=== PATIENT | female | born 1975 | race Caucasian/White ===

== ENCOUNTER 2019-10-23 12:12 | Emergency (ER) | payer OTHER, SELFPAY ==
[2019-10-23 12:24] VITALS: BP 137/91; PULSE 92; RESP 16; TEMP 36.8; O2SAT 100
--- NOTE | 2019-10-23 13:15 | ED.GENADULT ---
HPI - General Adult General Chief complaint: Dental/Oral Stated complaint: Swollen jaw/tooth Time Seen by Provider: 10/23/19 13:16 Source: patient and RN notes reviewed Mode of arrival: ambulatory Limitations: no limitations History of Present Illness HPI narrative: 44 [facility] complaints of pain to right lower 1st molar which started last pm with increase discomfort today. Patient states that she has noted some swelling to her right lower jaw, denies any difficulty with swallowing or shortness of breath, no Francisco Javier angina noted. Patient states history of dental problems has been taking Ibuprofen for her discomfort with mild pain decrease noted. Patient has noted caries to several teeth, states does not have dental appointment. MD complaint: dental pain and swelling to face Onset (ago): day(s) Location: face (dental pain with mild right jaw swelling) Radiation: non-radiation Severity: severe Severity scale (1-10): 8 Quality: aching Pain Consistency: constant Relieving factors: none Exacerbating factors: eating Associated symptoms: denies other symptoms Treatments prior to arrival: NSAID Related Data Home Medications Medication Instructions Recorded Confirmed fluoxetine mg 10/23/19 norethindrone (contraceptive) mg 10/23/19 Allergies Allergy/AdvReac Type Severity Reaction Status Date / Time No Known Allergies Allergy Unknown Unverified 03/24/18 10:17 Review of Systems Review of Systems: All systems reviewed & are unremarkable except as noted in HPI and below Constitutional: Constitutional: Reports as per HPI and Reports no additional constitutional complaints Eyes: Eyes: Reports as per HPI and Reports no additional eye complaints ENT: Reports system reviewed and no additional complaints, except as documented and Reports as per HPI Comments: dental caries, right lower molar, mild facial swelling Cardiovascular: Cardiovascular: Reports as per HPI and Reports no additional cardiovascular complaints Respiratory: Respiratory: Reports as per HPI and Reports no additional respiratory complaints Comments: respirations non labored Gastrointestinal: Gastrointestinal: Reports as per HPI and Reports no additional gastrointestinal complaints Genitourinary: Genitourinary: Reports no additional female genitourinary complaints and Reports as per HPI Musculoskeletal: Musculoskeletal: Reports no additional musculoskeletal complaints and Reports as per HPI Integumentary/Breasts: Skin/Breast: Reports system reviewed and no additional complaints, except as docu and Reports as per HPI Neurologic: Reports system reviewed and no additional complaints, except as documented and Reports as per HPI Psychiatric: Psychiatric: Reports no additional psychiatric complaints, Reports as per HPI, Reports anxiety and Reports depression Comments: takes medication Endocrine: Endocrine: Reports no additional endocrine complaints Hematologic/Lymphatic: Hematologic/Lymphatic: Reports no additional hematologic/lymphatic complaints Allergic/Immunologic: Allergic/Immunologic: Reports no additional allergic/immunologic complaints and Reports as per HPI Comments: mild right jaw swelling PMFSH Past Medical History Medical History (Updated 10/30/19 @ 10:21 by Tori Emery NP) Anxiety and depression Dental caries Social History Social History (Updated 10/30/19 @ 10:21 by Tori Emery NP) Smoking status: Current every day smoker Tobacco type: cigarettes Living arrangements: with family Gender identity (if verbalized by the patient): Female Comments At time of signature, agree with nursing past medical, social history. There is no relevant family history pertinent to the presenting complaint Exam Narrative: Exam Narrative: GENERAL: Well-appearing, well-nourished, and in no acute distress. HEAD: Normocephalic, atraumatic. EYES: PERRLA and EOMI. ENT: Nares clear, no rhinorrhea or ep
== END 2019-10-23 13:34 | disposition home or self-care (01) ==
PROVIDERS: Emergency Provider Registered Nurse
DX: K08.89 Other specified disorders of teeth and supporting structures (principal); K02.9 Dental caries, unspecified; F41.9 Anxiety disorder, unspecified; F32.9 Major depressive disorder, single episode, unspecified
CPT/HCPCS: 99213; G0463

== ENCOUNTER 2022-07-11 09:39 | Emergency (ER) | payer OTHER, SELFPAY ==
--- NOTE | 2022-07-11 09:46 | ED.URI ---
HPI - URI/Sore Throat General Chief Complaint: Ear Stated Complaint: Right Ear Pain Time Seen by Provider: 07/11/22 09:53 Source: patient, RN notes reviewed and old records reviewed Mode of arrival: ambulatory Limitations: no limitations History of Present Illness HPI Narrative: 47-year-old female presents to the [facility] with complaints of right ear pain after a fall a fly ?fell into my ear this morning. Patient states it feels like something moving in it. Denies any other symptoms. Denies fevers. Related Data Allergies Allergy/AdvReac Type Severity Reaction Status Date / Time No Known Allergies Allergy Unknown Verified 07/11/22 09:45 Review of Systems Review of Systems: All systems reviewed & are unremarkable except as noted in HPI and below Constitutional: Constitutional: Reports no additional constitutional complaints, Denies chills and Denies fever(s) Eyes: Eyes: Reports no additional eye complaints ENT: Reports as per HPI Cardiovascular: Cardiovascular: Reports no additional cardiovascular complaints Respiratory: Respiratory: Reports no additional respiratory complaints Gastrointestinal: Gastrointestinal: Reports no additional gastrointestinal complaints Musculoskeletal: Musculoskeletal: Reports no additional musculoskeletal complaints Integumentary/Breasts: Skin/Breast: Reports system reviewed and no additional complaints, except as docu Neurologic: Reports system reviewed and no additional complaints, except as documented Psychiatric: Psychiatric: Reports no additional psychiatric complaints Allergic/Immunologic: Allergic/Immunologic: Reports no additional allergic/immunologic complaints PMFSH Past Medical History Medical History Anxiety and depression Dental caries Social History Social History Smoking status: Current every day smoker Tobacco type: cigarettes Gender identity (if verbalized by the patient): Female Comments At the time of my signature, I reviewed and agree with the nursing past medical, surgical, social, and family history. There is no relevant family history pertinent to the patient complaint. Exam Const: General: healthy appearing, comfortable, no acute distress, well developed, alert and well nourished Nutritional Appearance: well nourished Orientation/consciousness: patient oriented x3 Limitations: no limitations HENMT: Head: normal to inspection Ears: external ears normal, TM's normal bilaterally and EAC's normal (No foreign body, small amount of cerumen noted) Face/Nose/Sinus: Normal external nose present and Normal nares present Face and sinus: normal facial exam Mouth: Yes Normal oral and palatal mucosa present, Yes lip normal and Yes moist mucous membranes Throat: posterior oropharynx normal and uvula midline Eyes: General: appearance normal, both eyes and all related structures Pupils: Equal, round and reactive pupils present Neck: Neck: normal visual inspection, full ROM, no lymphadenopathy and no meningeal signs Chest: Chest palpation & inspection: normal inspection of the chest Resp: Effort & Inspection: normal respiratory effort and no use of accessory muscles Auscultation: clear to auscultation bilaterally, no crackles, no rales, no rhonchi and no wheezes Cardio: Rate: regular rate Rhythm: regular rhythm GI: GI Palp: Yes Soft to palpation and No Tenderness to palpation present (GI) Back/Spine/Pelvis: Cervical Spine: cervical ROM normal and No Cervical spine tenderness Thoracic/Lumbar Spine: thoracic and lumbar spine normal to inspection and thoraco-lumbar ROM normal Skin: General skin exam: normal color Rashes: no rashes Wounds: no wounds Neuro: General: patient oriented x3, moves all extremities, no meningeal signs and no focal motor deficits Cranial nerves: Yes Equal, round and reactive pupils present Speech: normal speech Gait exam
[2022-07-11 09:48] VITALS: BP 120/75; PULSE 83; RESP 16; TEMP 36.9; O2SAT 100
== END 2022-07-11 10:10 | disposition home or self-care (01) ==
PROVIDERS: Emergency Provider Nurse Practitioner
DX: H92.01 Otalgia, right ear (principal); H61.21 Impacted cerumen, right ear; F17.210 Nicotine dependence, cigarettes, uncomplicated
CPT/HCPCS: 69209; 99213; G0463

== ENCOUNTER 2022-11-22 09:17 | Emergency (ER) | payer OTHER, SELFPAY ==
--- NOTE | 2022-11-22 09:35 | ED.URI ---
HPI - URI/Sore Throat General Chief Complaint: Upper Respiratory Infection Stated Complaint: sore throat Time Seen by Provider: 11/22/22 09:35 Source: patient Mode of arrival: ambulatory Limitations: no limitations History of Present Illness HPI Narrative: Roger is a 47-year-old female patient presenting to the clinic today with complaints of a nasal congestion x7 days and sore throat x1 day. She denies any fever or chills. Denies any known exposure to anyone with COVID, flu, or strep. MD elicited complaint: sore throat and nasal congestion Related Data Home Medications Medication Instructions Recorded Confirmed No Home Medications 11/22/22 11/22/22 Allergies Allergy/AdvReac Type Severity Reaction Status Date / Time No Known Allergies Allergy Unknown Verified 11/22/22 09:42 Review of Systems Review of Systems: Pertinent positives per HPI. Patient denies any fever, chills, rash, headache, visual changes, dizziness, cough, shortness of breath, chest pain, palpitations, nausea, vomiting, diarrhea, constipation, abdominal pain, or any urinary issues. PMFSH Past Medical History Medical History Anxiety and depression Dental caries Social History Social History Smoking status: Current every day smoker Tobacco type: cigarettes Living arrangements: with family Gender identity (if verbalized by the patient): Female Comments At the time of my signature, I reviewed and agree with the nursing past medical, surgical, social, and family history. There is no relevant family history pertinent to the patient complaint. Exam Narrative: General: Well-developed, well nourished, in no apparent distress Head: Normocephalic, atraumatic Eyes: Pupils equally round and reactive to light bilaterally, EOM intact, sclera and conjunctive clear, no discharge, lids normal Ears: TMs intact and clear, ear canals clear, no drainage, grossly hearing normal. Nose: Nares patent, clear nasal discharge, moderate inflammation, no sinus tenderness. Mouth: Oral pharynx without lesions or masses, good dentition, MMM. Oropharynx red with bilateral tonsillar enlargement Neck: Supple, trachea midline, no enlargement of anterior or posterior cervical nodes, no thyroid masses or goiter palpable. Cardio: Regular rate and rhythm, s1 and s2 normal, no murmur appreciated. Resp: Clear to auscultation bilaterally, no rhonchi, rales, wheezing or rubs Course Course Emergency Course: Portions of this record may have been created with voice recognition software. Level of Care: Express Care Visit Vital Signs Vital signs: Vital Signs Temperature 36.6 C 11/22/22 09:40 Pulse Rate 106 H 11/22/22 09:40 Respiratory Rate 14 11/22/22 09:40 Blood Pressure 143/83 H 11/22/22 09:40 Pulse Oximetry 100 11/22/22 09:40 Oxygen Delivery Room Air 11/22/22 09:40 Temperature 36.6 C 11/22/22 09:40 Pulse Rate 106 H 11/22/22 09:40 Respiratory Rate 14 11/22/22 09:40 Blood Pressure 143/83 H 11/22/22 09:40 Pulse Oximetry 100 11/22/22 09:40 Oxygen Delivery Room Air 11/22/22 09:40 Vital signs reviewed MDM - URI/Sore Throat MDM Narrative Medical decision making narrative: At the time of visit patient is resting comfortably on exam table. Strep screen was obtained and was negative in the clinic today. I suspect patient has URI/pharyngitis. Supportive measures were discussed with the patient she voiced understanding discharge instructions and agrees to treatment plan. Differential Diagnosis Differential diagnosis: Likely upper respiratory infection, sinusitis, viral infection, bronchitis, influenza, pharyngitis and other (COVID) Lab Data Labs: Strep Screen Presumptive Negative *(Reference Range: Negative)* Discharge Plan Discharge Clinica
[2022-11-22 09:40] VITALS: BP 143/83; PULSE 106; RESP 14; TEMP 36.6; O2SAT 100
== END 2022-11-22 10:08 | disposition home or self-care (01) ==
PROVIDERS: Emergency Provider Nurse Practitioner Family
DX: J02.9 Acute pharyngitis, unspecified (principal); F17.210 Nicotine dependence, cigarettes, uncomplicated
CPT/HCPCS: 87081; 87880; 99213; G0463

== ENCOUNTER 2023-01-10 09:28 | Emergency (ER) | payer OTHER, SELFPAY ==
--- NOTE | 2023-01-10 09:31 | ED.EXTPRO ---
HPI - Extremity Problem General Chief complaint: Extremity Problem,Nontraumatic Stated complaint: pain in left knee for past 5 days Time Seen by Provider: 01/10/23 09:30 Source: patient Mode of arrival: ambulatory Limitations: no limitations History of Present Illness HPI Narrative: Ms. Koehler is a 47-year-old female patient presenting to the clinic today with complaints of left knee pain x5 days. She reports she is having pain to the anterior knee that is radiated up into her anterior thigh and anterior tibia. Denies any known injury. States pain is worse with bending and with ambulation. Patient is currently moving and is having to walk up and down steps frequently. Related Data Home Medications Medication Instructions Recorded Confirmed No Home Medications 11/22/22 01/10/23 Allergies Allergy/AdvReac Type Severity Reaction Status Date / Time No Known Allergies Allergy Unknown Verified 01/10/23 09:48 Review of Systems Review of Systems: Pertinent positives per HPI. Patient denies any fever, chills, rash, headache, visual changes, dizziness, cough, runny nose, sore throat, shortness of breath, chest pain, palpitations, nausea, vomiting, diarrhea, constipation, abdominal pain, or any urinary issues. PMFSH Past Medical History Medical History Anxiety and depression Dental caries Social History Social History Smoking status: Current every day smoker Tobacco type: cigarettes Living arrangements: with family Gender identity (if verbalized by the patient): Female Comments At the time of my signature, I reviewed and agree with the nursing past medical, surgical, social, and family history. There is no relevant family history pertinent to the patient complaint. Exam Narrative: General: Well-developed, well nourished, in no apparent distress Head: Normocephalic, atraumatic. Cardio: Regular rate and rhythm, s1 and s2 normal, no murmur appreciated. Resp: Clear to auscultation bilaterally, no rhonchi, rales, wheezing or rubs. Musculoskeletal: No deformity, tender to palpation over the anterior knee with pain radiating into the anterior upper and lower leg, pain worse with bending the left knee to the anterior knee, grossly normal range of motion, muscle strength strong and equal, peripheral pulse strong, no edema, no cyanosis, normal gait and station Course Course Emergency Course: Portions of this record may have been created with voice recognition software. Level of Care: Express Care Visit Vital Signs Vital signs: Vital signs reviewed MDM - Extremity (Nontraumatic) MDM Narrative Medical decision making narrative: At the time of visit patient is resting comfortably on the exam table. I suspect patient has patellofemoral syndrome. Supportive measures were discussed with the patient in an Jose wrap was applied. Patient voiced understanding and agrees to treatment plan. Differential Diagnosis Differential diagnosis: Likely other (Acute internal derangement of the left knee, patellofemoral syndrome, osteoarthritis, tendinitis) Discharge Plan Discharge Clinical Impression: Acute pain of left knee Patella-femoral syndrome Qualifiers: Laterality: left Qualified Code(s): M22.2X2 - Patellofemoral disorders, left knee Patient Disposition: Home, Self-Care Condition: Stable Instructions: Antibiotic Form, Patellofemoral Pain Syndrome (ED), Knee Pain (ED) Additional Instructions: Rest, ice, elevate, and wear jose wrap as directed Take Motrin 600-800mg for pain/inflammation 3 times daily. May apply Aspercreme, blue emu, or lidocaine to the affected area No running, squatting, or sports until healed. Follow up with your PCP if symptoms persist more than 1 week. Prescriptions: No Action No Home Medications Follow-up/Referrals: [facility]YS[facility]
[2023-01-10 09:36] VITALS: BP 133/85; PULSE 94; RESP 16; TEMP 36.9; O2SAT 100
== END 2023-01-10 09:55 | disposition home or self-care (01) ==
PROVIDERS: Emergency Provider Nurse Practitioner Family
DX: M25.562 Pain in left knee (principal); M22.2X2 Patellofemoral disorders, left knee; F17.210 Nicotine dependence, cigarettes, uncomplicated
CPT/HCPCS: 99212; G0463

== ENCOUNTER 2024-05-13 11:16 | Outpatient (CLI) | payer OTHER, SELFPAY | END 2024-05-13 11:17 | disposition home or self-care (01) | PROVIDERS: Visit Provider Family Medicine | DX: M25.561 Pain in right knee (principal) | CPT/HCPCS: 73564 ==

== ENCOUNTER 2024-06-13 13:16 | Outpatient (CLI) | payer OTHER, SELFPAY ==
--- NOTE | ~2024-06-13 | MR_ITS ---
MRI right knee without contrast Ordering provider: Venkatesh Parks DO History: . M25.561 - Pain in right knee . Comparison: None. TECHNIQUE: Multiplanar multisequence MRI images were obtained. 15 mL MultiHance was injected IV. FINDINGS: QUADRICEPS, PATELLAR TENDONS AND CRUCIATE LIGAMENTS: Normal in signal and size. No tear. MENISCI: T2 bright signal is seen in the posterior horn of the medial meniscus extending to the unde rsurface suggestive of a tear. COLLATERAL LIGAMENTS: Normal. PATELLA: Normal position without tilt or subluxation. The lateral patellar retinaculum and medial pat ellofemoral ligament are intact. Partial tear of the medial retinaculum is highly suggestive. Follow- up advised. JOINT SPACE/ARTICULAR CARTILAGE: The articular cartilage of the knee shows irregularity on the femor al knee cartilage medially suggestive of osteoarthritic changes. Including the posterior femoral cond yles. Mild to moderate joint effusion. Enhancement in the synovium is noted which may indicate synovi tis. BONES: Normal marrow signal. SUPERFICIAL AND DEEP SOFT TISSUE: No popliteal cyst. . No muscle strain. Otherwise, normal. IMPRESSION: tear in the posterior horn of the medial meniscus. Possible partial tear of the medial retinaculum. Enhancement seen in the synovium which may indicate synovitis.. Clinical correlation and follow-up ad vised. Osteoarthritic changes of the medial compartment. Reviewed, dictated and finalized at location A. IMPRESSION: tear in the posterior horn of the medial meniscus. Possible partial tear of the medial retinaculum. Enhancement seen in the synovium which may indicate synovitis.. Clinical correl ation and follow-up advised. Osteoarthritic changes of the medial compartment.
== END 2024-06-13 13:17 | disposition home or self-care (01) ==
PROVIDERS: PCP Family Medicine; Visit Provider Family Medicine
DX: M25.361 Other instability, right knee (principal); S83.206A Unspecified tear of unspecified meniscus, current injury, right knee, initial encounter; X58.XXXA Exposure to other specified factors, initial encounter
CPT/HCPCS: 73723; A9577

== ENCOUNTER 2024-09-18 10:30 | Outpatient (RCR) | payer OTHER, SELFPAY ==
--- NOTE | 2024-07-10 12:12 | PTOPEVAL1 ---
Assessment and note entered by Shruthi Dominguez, PT Evaluation Information Assessment Status Evaluation Diagnosis S83.206A ICD-10 Condition Codes (PT) M25.561,Pain in left knee M25.562,Difficulty Walking R26.2,R26.9,Weakness R53.1 Subjective Information Pt reports falling on the R knee approx 2 yrs ago, and did not think much about it at that time. However, she noticed increased swelling and increased pain to affected knee last March 2023. 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 Pt elevates leg, takes Tylenol and ice to help relieve pain. Recently received a Cortisone shot last 07/03 but had to work that same day, which did not help, now it is still swollen and painful and there is a visible bruise to medial side of knee. Pt wants to be able to function without pain and improve walking. Reported Pain Level Pain Score 3: Self Report Assessment PT Clinical Summary Pt is a 49 yo female who presents to therapy with increased pain to R knee, MRI results showed a tear in the posterior horn of the medial meniscus, Possible partial tear of the medial retinaculum, Enhancement seen in the synovium which may indicate synovitis, Osteoarthritic changes of the medial compartment. Demos audible and palpable crepitus to bilat knees, significant loss of ROM to R knee with noted swelling, weakness, decreased standing tolerance, balance deficits and gait impairments impacting safety with performing ADLs and IADLs independently. She will benefit from skilled PT to address and manage pain, regain joint mobility, improve stability and strength of BLE musculature, improve standing and ambulation mechanics. Plan of Care Interventions Electrical Stimulation,Gait Training,Hot Pack/Cold Pack,Intermittent Compression,Manual Therapy, Neuro Re-education,Patient/Caregiver Education, Therapeutic Activities,Therapeutic Exercise, Ultrasound,Other Other Interventions IASTM, Taping PT Services Indicated Yes Treatment Frequency and 2x/wk x 12 visits Duration These treatments will address the objective and functional deficits as defined above. The patient will be advanced safely and appropriately in order for the patient to progress towards his/her prior level of function. Additional exercises will be introduced and as well as a comprehensive home exercise program upon discharge, if needed, ?to ensure carryover of functional gains achieved in the clinic. This treatment plan has been reviewed and agreement upon by the patient.
--- NOTE | 2024-09-15 13:29 | PTOPPROG ---
Assessment and note entered by Shruthi Dominguez, PT Progress Information Assessment Status Progress Diagnosis S83.206A ICD-10 Condition Codes (PT) Pain in right knee M25.561,Pain in left knee M25. 562,Difficulty Walking R26.2,Abnormalities of gait and mobility R26.9,Weakness R53.1 Subjective Information Pt reports that she feels like she is able to move the knee better with not much pain, both hips have been hurting on and off and recently been getting worse with the cold weather. Assessment PT Clinical Summary Pt demo good progress with skilled PT, able to tolerate standing and walking longer at this time. However, she also made significant adjustment to workload to reduce strain to R knee. Pain and swelling persist and failed to improve and return to normal with conservative treatments resulting to requiring the next level of care at this time. She will benefit from continued skilled PT to further improve RLE mobility and general strength and stability to prepare for possible surgical interventions. Plan of Care Interventions Electrical Stimulation,Gait Training,Hot Pack/Cold Pack,Intermittent Compression Pump,Manual Therapy ,Neuro Re-education,Patient/Caregiver Education, Therapeutic Activities,Therapeutic Exercise, Ultrasound,Other Other Interventions IASTM, Taping PT Services Indicated Yes Treatment Frequency and 2x/wk x 6 visits Duration These treatments will address the objective and functional deficits as defined above. The patient will be advanced safely and appropriately in order for the patient to progress towards his/her prior level of function. Additional exercises will be introduced and as well as a comprehensive home exercise program upon discharge, if needed, ?to ensure carryover of functional gains achieved in the clinic. This treatment plan has been reviewed and agreement upon by the patient.
--- NOTE | 2024-09-29 09:32 | PTOPDC ---
Assessment and note entered by Shruthi Dominguez, PT Discharge Information Assessment Status Discharge - Pt Not Present Diagnosis S83.206A ICD-10 Condition Codes (PT) Pain in right knee M25.561,Pain in left knee M25. 562,Difficulty Walking R26.2,Abnormalities of gait and mobility R26.9,Weakness R53.1 Subjective Information Pt reports that she feels like she is able to move the knee better with not much pain, both hips have been hurting on and off and recently been getting worse with the cold weather. Assessment PT Clinical Summary Pt received a total of 12 treatment sessions and showed gains in joint mobility and strength. 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 Her R knee swelling and pain continue to persist, resulting to a need for a different medical approach at this time. skilled PT discontinued. Plan of Care PT Services Indicated No
== END 2024-09-29 09:51 | disposition home or self-care (01) ==
LOC: ANHHIPT 10:30
PROVIDERS: PCP Family Medicine; Visit Provider Orthopaedic Surgery
DX: S83.206A Unspecified tear of unspecified meniscus, current injury, right knee, initial encounter (principal); M25.561 Pain in right knee; M25.562 Pain in left knee; R26.2 Difficulty in walking, not elsewhere classified; R26.9 Unspecified abnormalities of gait and mobility; R53.1 Weakness
CPT/HCPCS: 97014; 97016; 97035; 97110; 97140; 97161; 97750; G0283

== ENCOUNTER 2024-09-23 13:11 | Outpatient (CLI) | payer OTHER, SELFPAY ==
--- NOTE | ~2024-09-23 | US_ITS ---
EXAM: PELVIC ULTRASOUND HISTORY: N92.6 - Irregular menstruation, unspecified . Irregular menses with dysfunctional uterine bl eeding 9 para 8 Postmenopausal COMPARISON: None. FINDINGS: UTERUS: 12.8 x 6.0 x 7.7 cm cm. The uterus is anteverted and anteflexed. The endometrial complex is thickened and measures 23 mm. RIGHT OVARY: The right ovary is unremarkable in size measuring 2.5 x 2.2 x 2.8 cm. Dopplerable flow is identified. LEFT OVARY: The left ovary is unremarkable in size measuring 4.9 x 2.5 x 4.5 cm Dopplerable flow is identified. A single anechoic avascular focus is identified within the left ovary measuring 3.5 x 2.3 x 3.2 cm, r epresenting a simple cyst (perhaps an involuting follicle) for which follow-up is suggested in 6-12 m onths to assess growth. No free fluid is identified within the pelvis. IMPRESSION: Simple cyst within the right ovary measuring 3.5 cm in greatest dimension for which follow-up is sugmary jane garcia in 6-12 months to assess interval growth Thickening of the endometrial complex in a postmenopausal female Reviewed, dictated and finalized at location A. [employer] IMPRESSION: Simple cyst within the right ovary measuring 3.5 cm in greatest dimension [facility] is suggested in 6-12 months to assess interval growth Thickening of the endometrial complex in a postmenopausal female
[2024-09-23 14:44] LABS: Thyroid Stimulating Hormone Reflex 0.544 uIU/mL (0.465-4.68)
[2024-09-24 08:04] LABS: Prolactin 3.6 ng/mL
== END 2024-09-23 13:12 | disposition home or self-care (01) ==
LOC: ANHIMG 13:12
PROVIDERS: PCP Family Medicine; Visit Provider Family Medicine
DX: N92.6 Irregular menstruation, unspecified (principal); N83.201 Unspecified ovarian cyst, right side
CPT/HCPCS: 36415; 76830; 82672; 84146; 84443

== ENCOUNTER 2024-11-18 09:17 | Outpatient (CLI) | payer MEDICAID, SELFPAY ==
--- NOTE | ~2024-11-18 | MR_ITS ---
MRI of the right shoulder Technique: Axial proton-density fat-sat images, coronal proton density fat-sat and T2 fat-sat images, and sagittal T1-weighted and T2 fat-sat images were acquired. Clinical History: Pain Findings: There is moderate to advanced AC joint degenerative change with subacromial spur and distal clavicular bony productive change. Coracoclavicular, coracoacromial, and coracohumeral ligament are intact. There is 0.8 x 0.9 cm full-thickness tear at the distal supraspinatus tendon insertion region. There is background moderate to severe supraspinatus tendinosis. Infraspinatus tendon is intact, without pa rtial or full-thickness tear. Subscapularis tendon demonstrates mild tendinosis with possible partial thickness bursal surface tearing of the distal most fibers. Tendon of long head of the biceps is int act, with intra-articular tendinosis. Probable subtle superior labral tear without definite anterior or posterior extension. Inferior glenohumeral ligament is intact. No significant degenerative change of the glenohumeral join t seen. There is minimal effusion. There is fluid passing through the rotator cuff defect into the dean bacromial/subdeltoid bursa. No muscle atrophy or edema. Impression: 0.8 x 0.9 cm full-thickness tear at the distal supraspinatus tendon, with background moderate to syl re supraspinatus tendinosis. Questionable partial thickness bursal surface tearing of the distal most fibers of the subscapularis tendon. Questionable superior labral tear without anterior or posterior extension. Moderate to advanced AC joint degenerative change. Reviewed, dictated and finalized at [facility]. Impression: 0.8 x 0.9 cm full-thickness tear at the distal supraspinatus tendon, with backg round moderate to severe supraspinatus tendinosis. Questionable partial thickness bursal surface tearing of the distal most fibers of the subscapularis tendon. Questionable superior labral tear without anterior or posterior extension. Moderate to advanced AC joint degenerative change.
--- OUTSIDE RECORDS SUMMARY | 2024-11-18 10:02 | XMS_ITS | Clinical Summary ---
Author Organization [facility] [employer] Address [address] [facility] [place] [address] Care Team Providers Care Order Control Clerk Blood Bank Name Role Phone Natacha Stern Yudelka SOLDERER ELECTRONIC-BODY CARE MANAGER Primary Care Provider Source Comments [facility] [employer],non-owned Affiliates and Associated Physician Practices is amultiple site organization consisting of ambulatory clinics and hospital sitesin [place], [place], [place] and [place]. This disclosure is being madepursuant to the Care Everywhere program and may not contain all information available regarding this patient. Last updated 18.[facility] [employer] Allergies No known active allergies Medications * Be aware that medications may not be up to date on this document. Alwaysverify current medications with the patient. Medication Sig Dispensed Refills Start Date End Date Status FLUoxetine (PROZAC) 20 MG capsule 04/27/2019 Active Active Problems Problem Noted Date Diagnosed Date Maternal age 40 at delivery 03/30/2015 Encounter for routine screen ing for malformation using ultrasonics 03/30/2015 Social History Tobacco Use Types Packs/Day Years Used Date Smoking Tobacco: Every Day Smokeless Tobacco: Never Sex and Gender Information Value Date Recorded Sex Assigned at Not on file Gender Identity Not on file Sexual Orientation Not on file Last Filed Vital Signs Vital Sign Reading Time Taken Comments Blood Pressure 120/82 08/05/2019 10:08 AM TECHNOLOGY ANALYST Pulse 94 08/05/2019 10:08 AM TECHNOLOGY ANALYST Temperature 36.9 C (98.5 F) 08/05/2019 10:08 AM TECHNOLOGY ANALYST Respiratory Rate - - Oxygen Saturation 96% 08/05/2019 10:08 AM TECHNOLOGY ANALYST Inhaled Oxygen Concentration - - Weight 80.7 kg (178 lb) 08/05/2019 10:08 AM TECHNOLOGY ANALYST Height 157.5 cm (5' 2 ) 08/05/2019 10:08 AM TECHNOLOGY ANALYST Body Mass Index 32.56 08/05/2019 10:08 AM TECHNOLOGY ANALYST Plan of Treatment Health Maintenance Due Date Last Done Comments COLOGUARD (AGES 45-75) - COL ON CA SCREENING 1976 COLON MONITORING 1976 COLONOSCOPY - COLON CA SCREENING 1976 CT COLONOGRAPHY - COLON CA SCREENING 1976 Colorectal Cancer Screening 1976 FIT - COLON CA SCREENING 1976 FLEX SIG - COLON CA SCREENING 1976 LIPID TESTING 1976 MAMMOGRAM 1976 PAP SMEAR 1976 HIV SCREENING 1991 HEPATITIS C SCREENING 06/21/1994 DTAP/TDAP/TD VACCINES (1 - Tdap) 1995 HEPATITIS B VACCINE (1 of 3 - 19+ 3-dose series) 1995 PNEUMOCOCCAL VACCINE (1 of 2 - PCV) 1995 SCREENING FOR DIABETES 08/05/2022 08/05/2019 COVID-19 VACCINE (1 - 2023-2 5 season) 2024 INFLUENZA VACCINE (#1) 2024 DEPRESSION SCREENING 09/03/2024 ZOSTER VACCINE (1 of 2) 2026 HIB VACCINE Aged Out No longer eligi ble based on patient's age to complete this topic HPV VACCINE Aged Out No longer eligi ble based on patient's age to complete this topic MENINGOCOCCAL (Group B) VACC INE SHARED DECISION-MAKING Aged Out No longer eligibl e based on patient's age to complete this topic MENINGOCOCCAL GROUPS A/C/Y/W VACCINE Aged Out No longer eligible b ased on patient's age to complete this topic Procedures Procedure Name Priority Date/Time Associated Diagnosis Comments COMPREHENSIVE METABOLIC PANEL Routine 08/05/2019 11:49 AM TECHNOLOGY ANALYST Low TSH level from Last 3 Months or Most Recently Relevant to Health Maintenance Results * (ABNORMAL) COMPREHENSIVE METABOLIC PANEL (08/05/2019 11:49 AM TECHNOLOGY ANALYST) BUN 11 7 - 26 mg/dL 08/05/2019 1:22 PM TECHNOLOGY ANALYST [facility] Creatinine 0.5(L) 0.6 - 1.2 mg/dL 08/05/2019 1:22 PM [facility] Sodium 141 136 - 145 mmol/L 08/05/2019 1:22 PM [facility] Potassium 3.6 3.5 - 4.5 mmol/L 08/05/2019 1:22 PM [facility] Chloride 108(H) 98 - 107 mmol/L 08/05/2019 1:22 PM [facility] CO2 24 22 - 29 mmol/L 08/05/2019 1:22 PM [facility] Glucose 87 70 - 115 mg/dL 08/05/2019 1:22 PM [facility] Calcium 9.2 8.4 - 10.2 mg/dL 08/05/2019 1:22 PM [facility] Protein Total 7.6 6.0 - 8.3 g/dL 08/05/2019 1:22 PM [facility] Albumin 4.2 3.4 - 5.0 g/dL 08/05/2019 1:22 PM [facility] Bilirubin Total 0.8 0.2 - 1.2 mg/dL 08/05/2019 1:22 PM [facility] Alkaline Phosphatase 69 40 - 150 Units/L 08/05/2019 1:22 PM [facility] ALT 11 0 - 55 Units/L 08/05/2019 1:22 PM [facility] AST 15 5 - 34 Units/L 08/05/2019 1:22 PM [facility] Anion Gap 13 8 - 18 08/05/2019 1:22 PM [facility] BUN/Creatinine Ratio 22 7 - 23 08/05/2019 1:22 PM [facility] Osmolality Calculated 291 270 - 300 mOsm/kg 08/05/2019 1:22 PM [facility] Albumin/Globulin Ratio 1.2 1.1 - 2.3 08/05/2019 1:22 PM [facility] eGFR >60 >60 mL/min/1.7 3 m2 08/05/2019 1:22 PM [facility] Blood BLOOD SPECIMEN / Unknown Lab Venipuncture / Unknown 08/05/2019 11:49 AM TECHNOLOGY ANALYST 08/05/2019 12:39 PM [facility] Manpreet Ortiz MD LAB - CHEMISTRY [facility] [address] [phone] from Last 3 Months or Most Recently Relevant to Health Maintenance Care Teams Order Control Clerk Blood Bank Relationship Specialty Start Date End Date Natacha Stern, SOLDERER ELECTRONIC-BODY CARE MANAGER [address] [place] [address] PCP - General 08/05/19
--- OUTSIDE RECORDS SUMMARY | 2024-11-18 10:02 | XMS_ITS | Clinical Summary ---
Author Organization [facility] Address [address] [place] [id number] Care Team Providers Care Iron Worker Name Role Phone None, Provider MD Primary Care Provider Unavaila ble Allergies No known active allergies Medications No known medications Encounters Date Type Department Care Team Description 09/12/2024 11:25 AM CLINICAL LABORATORY AIDE - 09/12/2024 1:18 PM CLINICAL LABORATORY AIDE Emergency [facility] Emergency Services [address] [place] [address] Benjamin Parra DO Shoulder Injury Discharge Disposition: Home or Self Care (Routine Discharge) 09/12/2024 Travel from Last 3 Months Social History Tobacco Use Types Packs/Day Years Used Date Smoking Tobacco: Never Assessed Comments Unknown Sex and Gender Information Value Date Recorded Sex Assigned at Not on file Legal Sex Female 11:15 AM CLINICAL LABORATORY AIDE Gender Identity Not on file Sexual Orientation Not on file Last Filed Vital Signs Vital Sign Reading Time Taken Comments Blood Pressure 131/52 09/12/2024 11:40 AM CLINICAL LABORATORY AIDE Pulse 100 09/12/2024 11:40 AM CLINICAL LABORATORY AIDE Temperature 36 C (96.8 F) 09/12/2024 11:40 AM CLINICAL LABORATORY AIDE Respiratory Rate 18 09/12/2024 11:40 AM CLINICAL LABORATORY AIDE Oxygen Saturation 97% 09/12/2024 11:40 AM CLINICAL LABORATORY AIDE Inhaled Oxygen Concentration - - Weight 79.4 kg (175 lb) 09/12/2024 11:40 AM CLINICAL LABORATORY AIDE Height 160 cm (5' 3 ) 09/12/2024 11:40 AM CLINICAL LABORATORY AIDE Body Mass Index 31 09/12/2024 11:40 AM CLINICAL LABORATORY AIDE Plan of Treatment Health Maintenance Due Date Last Done Comments Cervical Cancer Screening Pa p Smear (Age 30 to 64) Every 3 Years 1976 Colorectal Cancer Screening Colonoscopy (10 Years) 1976 Annual Physical 1979 Hepatitis C 1994 DTaP, Tdap and Td Vaccines ( 1 - Tdap) 1995 Hepatitis B Vaccines (1 of 3 - 19+ 3-dose series) 1995 Cervical Cancer Screening Pa p with HPV Testing (Age 30 to 64) Every 5 Years 2006 Cervical Cancer Screening wi th HPV 2006 Mammogram Screening 2016 COVID-19 Vaccine (2 - 2023-2 5 season) 2024 01/29/2021 Influenza Adult (#1) 2024 09/24/2019, 07/24/2018 Meningococcal B Vaccine Aged Out No l onger eligible based on patient's age to complete this topic Meningococcal Vaccine Aged Out No ivory ewelina eligible based on patient's age to complete this topic Pneumococcal Vaccine: Pediatrics (0 to 5 Years) and At-Risk Patients (6 to 64 Years) Aged Out No longer eligible b ased on patient's age to complete this topic RSV Immunizations Under 20 Months Aged Out No longer eligible b ased on patient's age to complete this topic Procedures Procedure Name Priority Date/Time Associated Diagnosis Comments XR SHOULDER RT 3V STAT 09/12/2024 11: 51 AM CLINICAL LABORATORY AIDE from Last 3 Months Results * XR SHOULDER RT 3V (09/12/2024 11:51 AM CLINICAL LABORATORY AIDE) Anatomical Region Laterality Modality Shoulder Computed Tomogra phy 09/12/2024 11:5 2 AM CLINICAL LABORATORY AIDE Impressions 09/12/2024 11:52 AM CLINICAL LABORATORY AIDE IMPRESSION: No acute findings Ordered By: BENJAMIN PARRA Interpreted By: Aureliano Vazquez MD, 09/12/2024 11:52 AM Narrative 09/12/2024 11:52 AM CLINICAL LABORATORY AIDE [address] [place] [address] 3 VIEWS OF THE RIGHT SHOULDER CLINICAL HISTORY: Pain COMPARISON: None 3 views of the right shoulder demonstrate the bony elements to be intact. There is no evidence of fracture or dislocation. The surrounding soft tissues appear normal. Procedure Note Aureliano Vazquez MD - 09/12/2024 [facility] [address] [place] [address] 3 VIEWS OF THE RIGHT SHOULDER CLINICAL HISTORY: Pain COMPARISON: None 3 views of the right shoulder demonstrate the bony elements to be intact.There is no evidence of fracture or dislocation. The surrounding softtissues appear normal. IMPRESSION: No acute findings Ordered By: BENJAMIN PARRA Interpreted By: Aureliano Vazquez MD, 09/12/2024 11:52 AM us Benjamin Parra DO GENERAL IMAGING Final Res ult from Last 3 Months Insurance [employer] Care Teams Iron Worker Relationship Specialty Start Date End Date None, Provider, PCP - General UNKNOWN PHYSICIAN SPECIALTY 09/12/24
== END 2024-11-18 09:18 | disposition home or self-care (01) ==
PROVIDERS: PCP Family Medicine; Visit Provider Family Medicine
DX: M19.011 Primary osteoarthritis, right shoulder (principal)
CPT/HCPCS: 73221

== ENCOUNTER 2025-01-19 09:15 | Outpatient (RCR) | payer MEDICAID, OTHER, SELFPAY ==
--- NOTE | 2024-11-20 14:16 | OPREHPOC ---
Outpatient Therapy Plan of Care This is a Multidisciplinary Plan of Care that may contain components documented by all disciplines (PT, OT, and ST.) PT Problem 1 PT Problem #1 Knowledge Deficit PT Goal 1 Goal / Goal Update Pt will demo good understanding of diagnosis and prognosis. Pt will perform HEPs to improve shoulder stability and ROM indep. Target Visit 10 PT Problem 2 PT Problem #2 Pain PT Goal 1 Goal / Goal Update Pt will report pain intensity of at least 1-2/10 at rest, 5/10 at worst or when performing functional tasks of reaching and pulling. Target Visit 12 PT Problem 3 PT Problem #3 Impaired Range of Motion PT Goal 1 Goal / Goal Update Pt will demo an increase of 10deg or more of active shoulder ROM to all tested planes Target Visit 12 PT Problem 4 PT Problem #4 Impaired Strength PT Goal 1 Goal / Goal Update Pt will demo 5/5 strength to elbow, wrist and hand muscles and improved strength of shoulder upto at least 3/5 or more. Target Visit 10 Progress Met PT Problem 5 PT Problem #5 Impaired Functional Mobility PT Goal 1 Goal / Goal Update Pt will increase score of Quick DASH to 20 or less in order to improve safety in independent performance of functional tasks and IADLs. Target Visit 12
--- NOTE | 2024-11-20 14:17 | PTOPEVAL1 ---
Assessment and note entered by Shruthi Dominguez, PT Evaluation Information Assessment Status Evaluation Diagnosis M25.511 ICD-10 Condition Codes (PT) Pain in right shoulder M25.511,Weakness R53.1 Onset early September of 2024 Subjective Information R shoulder pain which started when she fell on ice and landed on her R side, it had swollen and she was not able to move it without pain. The stiffness and pain persisted up to now, 2 months after. States she received Cortisone shot on R shoulder 2 weeks after the injury but did not get any relief. Reaching back of head to tie hair is greatly limited, unable to grab and carry grocery bags with R arm, increased difficulty with performing ADLs (cooking and cleaning). Currently job less and sleep deprived due to pain and stress. Shoulder pain also wakes her up at night. Alternating Tylenol and Ibuprofen for pain relief but only minimal effect. Reported Pain Level Pain Score 3: Self Report Additional Pain Score Comments 3/10 pain level at rest Assessment PT Clinical Summary Pt presents to therapy with c/o increased pain to R shoulder. MRI on 11/18 showed full thickness tear at distal supraspinatus tendon with mod-severe supraspinatus tendinosis, possible labral tear, QUICK DASH score is 48 indicating extreme disability. Currently patient reports significant pain, severe limitation in ROM and strength impacting performance of ADLs and IADLs. She may benefit from skilled PT intervention to manage pain, improve knowledge on guided exercises, improve ROM and safety with performing functional mobility. Plan of Care Interventions Check Out for Orthotic/Prosthetic,Electrical Stimulation,Hot Pack/Cold Pack,Manual Therapy, Neuro Re-education,Patient/Caregiver Education, Therapeutic Activities,Therapeutic Exercise, Ultrasound,Other Other Interventions Benji, MARIA FERNANDA PT Services Indicated Yes Treatment Frequency and 1-2x/wk x 12 visits Duration These treatments will address the objective and functional deficits as defined above. The patient will be advanced safely and appropriately in order for the patient to progress towards his/her prior level of function. Additional exercises will be introduced and as well as a comprehensive home exercise program upon discharge, if needed, ?to ensure carryover of functional gains achieved in the clinic. This treatment plan has been reviewed and agreement upon by the patient.
--- NOTE | 2024-12-29 15:44 | PTOPPROG ---
Assessment and note entered by Shruthi Dominguez, PT Progress Information Assessment Status Progress Diagnosis M25.511 ICD-10 Condition Codes (PT) Pain in right shoulder M25.511,Weakness R53.1 Onset early September of 2024 Subjective Information Reports R shoulder pain continues to cause difficulty with movement like tying hair or opening a jar; 50% better than when she first started. Assessment PT Clinical Summary Pt received a total of 6 treatment sessions and demos gains in passive ROM and strength, however she demos limited improvement in pain levels and active ROM against gravity at this time. She has a f/u appointment with Ortho and agreeable to discussion about possible surgery. She wants to hold therapy treatment sessions until after update from Ortho at this time. Plan of Care Interventions Check Out for Orthotic/Prosthetic,Electrical Stimulation,Hot Pack/Cold Pack,Manual Therapy, Neuro Re-education,Patient/Caregiver Education, Therapeutic Activities,Therapeutic Exercise, Ultrasound,Other Other Interventions IASTM, Taping PT Services Indicated Yes Treatment Frequency and 2x/wk x 10 visits Duration These treatments will address the objective and functional deficits as defined above. The patient will be advanced safely and appropriately in order for the patient to progress towards his/her prior level of function. Additional exercises will be introduced and as well as a comprehensive home exercise program upon discharge, if needed, ?to ensure carryover of functional gains achieved in the clinic. This treatment plan has been reviewed and agreement upon by the patient.
--- NOTE | 2024-12-29 15:45 | OPREHPOC ---
Outpatient Therapy Plan of Care This is a Multidisciplinary Plan of Care that may contain components documented by all disciplines (PT, OT, and ST.) PT Problem 1 PT Problem #1 Knowledge Deficit PT Goal 1 Goal / Goal Update 1. Pt will demo good understanding of diagnosis and prognosis. 2. Pt will perform HEPs to improve shoulder stability and ROM indep. Target Visit 10 Progress Partially Met PT Goal 2 Goal / Goal Update 1. goal met 2. pt reports limited compliance with HEPs due to forgetting to do them PT Problem 2 PT Problem #2 Pain PT Goal 1 Goal / Goal Update Pt will report pain intensity of at least 1-2/10 at rest, 5/10 at worst or when performing functional tasks of reaching and pulling. Target Visit 12 Progress Partially Met PT Goal 2 Goal / Goal Update update 12/25/2024: pt continue to report highest pain levels of 6-7/10 PT Problem 3 PT Problem #3 Impaired Range of Motion PT Goal 1 Goal / Goal Update Pt will demo an increase of 10deg or more of active shoulder ROM to all tested planes Target Visit 12 Progress Partially Met PT Goal 2 Goal / Goal Update update 12/25/2024: limited progress towards shoulder rotation PT Problem 4 PT Problem #4 Impaired Strength PT Goal 1 Goal / Goal Update Pt will demo 5/5 strength to elbow, wrist and hand muscles and improved strength of shoulder upto at least 3/5 or more. Target Visit 10 Progress Partially Met PT Goal 2 Goal / Goal Update update 12/25/2024: R shoulder MMT continue to be 3- /5 due to unable to actively reach full ROM against gravity. PT Problem 5 PT Problem #5 Impaired Functional Mobility PT Goal 1 Goal / Goal Update Pt will increase score of Quick DASH to 20 or less in order to improve safety in independent performance of functional tasks and IADLs. Target Visit 12 Progress Not Met PT Goal 2 Goal / Goal Update update 12/25/2024: Quick DASH score of 33%
--- NOTE | 2025-02-02 15:51 | PTOPDC ---
Assessment and note entered by Shruthi Dominguez, PT Discharge Information Assessment Status Discharge Diagnosis M25.511 ICD-10 Condition Codes (PT) Pain in right shoulder M25.511,Weakness R53.1 Onset early September of 2024 Subjective Information Reports there are some days she is able to tie her hair without increased difficulty, Laying on the R side continue to be difficult at this time. R side of bra strap feels like burning sensation. Assessment PT Clinical Summary Pt has participated in therapy for R shoulder pain , demos some progress and gains in mobility, however strength and ability to perform functional tasks continue to be limited due to increased pain. Plan of Care PT Services Indicated No
== END 2025-02-02 16:17 | disposition home or self-care (01) ==
LOC: ANHHIPT 09:15
PROVIDERS: PCP Family Medicine; Visit Provider Family Medicine
DX: M25.511 Pain in right shoulder (principal)
CPT/HCPCS: 97014; 97035; 97110; 97112; 97140; 97161; 97750; G0283

== ENCOUNTER 2025-02-18 00:54 | Day surgery (SDC) | payer OTHER, SELFPAY ==
[2025-02-04 15:44] VITALS: BMI 32.0
--- NOTE | 2025-02-04 15:54 | PC.NURSE ---
Addendum entered by Jayden Fontaine RN 02/16/25 11:29: Patient says no changes since preop interview. Told patient to arrive at 0700 on 02-18-2025 for surgery at 0900. All other instruction the same. Original Note: Report to the Outpatient Waiting Room, entrance under the green pavilion located off [facility], at time __0800am on date __02/11/25 . Planned Procedure Time: 1000am .? Time changes happen often and if your time is changed the preop area will call you the afternoon before. - You and your visitor will be asked to self-screen and do not enter if you have any COVID symptoms. Please call surgeon if you need to reschedule. - A mask is optional within the hospital at this time. Patients may have clear liquids (water, carbonated beverages, clear teas, apple juice) until 3 hours prior to surgery with a maximum of 20 ounces. - No food from midnight until time of surgery and no smoking, or chewing tobacco (or any form of nicotine). No chewing gum, candy or mints. (0700am) Take only the following medications with a SIP of water on the morning of surgery: ___Tylenol if needed DO NOT STOP ANY OF YOUR OTHER PRESCRIPTION MEDICATIONS PRIOR TO SURGERY EXCEPT THE FOLLOWING Hold all vitamins and supplements for 3 days per anesthesiologist. Medications to discontinue per physician Motrin/NSAID/ADVIL for [address] Yagn Date to take last dose___02/06/24 Please no make-up, nail citizen of [place], hairspray, perfume, deodorant, or body powder the day of surgery.? No jewelry (including any body piercings) or valuables the day of surgery, leave them at home.? Please take a shower or bath the night before, or the morning of, surgery with an antibacterial soap.? Wear comfortable, loose fitting clothing.? - Jewelry must be removed prior to entering the operating room.? Rings and piercings that are not removed may be cut off. - The hospital will not accept responsibility for valuables.? - Please leave all valuables, including medications, at home the day of surgery. If you are going home after surgery, a licensed ems driver must drive you home.? - NO public transportation without another adult if you receive anesthesia. - We recommend that an adult stay with you for 24 hours following discharge. - We also recommend that you do not drive, make important decision, drink alcoholic beverages, or take any drugs that were not prescribed by your health care provider for at least 24 hours after your discharge time. Follow any additional instructions given to you from your surgeon. Telephone instructions given to ___Patient and asked if any additional questions and then verbalized understanding. Patient advised to call surgeon office or pre surgery nurse liaison [phone] if any additional questions.
--- NOTE | 2025-02-05 07:14 | PM.IMHP ---
H&P: HPI History of Present Illness Date/Time: 02/05/25 07:14 Chief Complaint: Patient has shoulder pain right. She has a rotator cuff tear. At this point conservative treatment is not working for. She would like to consider surgical interventiom. Review of Systems Musculoskeletal: Musculoskeletal: Reports myalgias, Reports arthralgias, Reports joint swelling and Reports stiffness PMFSH Past Medical History Medical History Tear of right supraspinatus tendon Thickened endometrium Dental caries Anxiety and depression Surgical History Surgical History History of 2012,2015,2018 Family History Family History Father Cancer Mother Hypertension Social History Social History Smoking packs per day: 0.5 Smoking cigarettes per day: 10.0 Years smoked: 15 Smoking pack-years: 7.50 Smoking status: Current every day smoker Tobacco type: cigarettes Smoking end date: 09/03/05 Alcohol intake: current Alcohol use details: 1 per month Substance use: never Do You Feel Safe in your Home?: Yes Lack of Transportation: No Lack of Food: Never True Current Housing: I Have Housing Concerned About Future Housing: No Difficulty Paying Gas/Electric Bills: No Difficulty Paying for Meds: No Currently Unemployed: No Education: High School Diploma/GED Difficulty w/ Childcare or Family Care: No Living arrangements: with family Gender identity (if verbalized by the patient): Female Spiritual care concerns: No Meds Home Medications and Allergies Home Medications ?Medication ?Instructions ?Recorded ?Confirmed ?Type meclizine 25 mg tablet 25 mg PO BID PRN dizziness #60 tabs 01/30/25 02/04/25 Rx acetaminophen 325 mg tablet (Pain 325 mg PO ONCE PRN pain 02/04/25 02/04/25 History Reliever (acetaminophen)) Allergies Allergy/AdvReac Type Severity Reaction Status Date / Time No Known Allergies Allergy Unknown Verified 02/04/25 15:42 Exam Narrative: Patient has pain with activity of her right shoulder. She is weak in abduction external rotation is give-way. Neurologically she is intact. She has pain with activity. She has a difficult time raising arm arm above the horizontal. Radiology Reports: Comments: Magnetic Resonance Report Signed Patient: Roger Koehler MRI of the right shoulder Technique: Axial proton-density fat-sat images, coronal proton density fat-sat and T2 fat-sat images, and sagittal T1-weighted and T2 fat-sat images were acquired. Clinical History: Pain Findings: There is moderate to advanced AC joint degenerative change with subacromial spur and distal clavicular bony productive change. Coracoclavicular, coracoacromial, and coracohumeral ligament are intact. There is 0.8 x 0.9 cm full-thickness tear at the distal supraspinatus tendon insertion region. There is background moderate to severe supraspinatus tendinosis. Infraspinatus tendon is intact, without partial or full-thickness tear. Subscapularis tendon demonstrates mild tendinosis with possible partial thickness bursal surface tearing of the distal most fibers. Tendon of long head of the biceps is intact, with intra-articular tendinosis. Probable subtle superior labral tear without definite anterior or posterior extension. Inferior glenohumeral ligament is intact. No significant degenerative change of the glenohumeral joint seen. There is minimal effusion. There is fluid passing through the rotator cuff defect into the subacromial/subdeltoid bursa. No muscle atrophy or edema. Impression: 0.8 x 0.9 cm full-thickness tear at the distal supraspinatus tendon, with background moderate to severe supraspinatus tendinosis. Questionable partial thickness bursal surface tearing of the distal most fibers of the subscapularis tendon. Questionable superior labral tear without anterior or posterior extension. Moderate to advanced AC joint degenerative change. Reviewed, dictated and finalized at location . Knee X-Ray 05/13/24 Knee MRI 06/13/24 Shoulder X-Ray 12/02/24 Shoulder MRI 11/18/24 Orthopedics Result Report 12/02/24 Assessment and Plan Assessment and plan (1) Tear of right supraspinatus tendon: Code(s): M75.101 - Unspecified rotator cuff tear or rupture of right shoulder, not specified as traumatic Status: Acute Assessment and Plan: Patient has a shoulder pain right. Her MRI demonstrates a rotator cuff tear. She also has acromioclavicular degeneration and pain with manipulation. She has failed conservative treatment like to proceed with surgical intervention I have discussed risks, benefits, limitations condyle, and alternatives with the patient in detail. Will proceed with rotator cuff repair distal clavicle excision arthroscopy of the shoulder. Patient understands and agrees. (2) Acromioclavicular arthrosis: Code(s): M19.019 - Primary osteoarthritis, unspecified shoulder Status: Acute
--- NOTE | 2025-02-12 09:14 | PM.IMHP ---
H&P: HPI History of Present Illness Date/Time: 02/12/25 09:14 Chief Complaint: Patient is shoulder pain right. Pain is localized to the right shoulder and she has pain and weakness. She has undergone therapy injections medicine and time unfortunately she continues to be symptomatic. She would like to consider surgical repair and of the rotator cuff and distal clavicle excision. Review of Systems Musculoskeletal: Musculoskeletal: Reports arthralgias, Reports joint swelling and Reports stiffness PMFSH Past Medical History Medical History Tear of right supraspinatus tendon Thickened endometrium Dental caries Anxiety and depression Surgical History Surgical History History of 2012,2015,2018 Family History Family History Father Cancer Mother Hypertension Social History Social History Smoking packs per day: 0.5 Smoking cigarettes per day: 10.0 Years smoked: 15 Smoking pack-years: 7.50 Smoking status: Current every day smoker Tobacco type: cigarettes Smoking end date: 09/03/05 Alcohol intake: current Alcohol use details: 1 per month Substance use: never Do You Feel Safe in your Home?: Yes Lack of Transportation: No Lack of Food: Never True Current Housing: I Have Housing Concerned About Future Housing: No Difficulty Paying Gas/Electric Bills: No Difficulty Paying for Meds: No Currently Unemployed: No Education: High School Diploma/GED Difficulty w/ Childcare or Family Care: No Living arrangements: with family Gender identity (if verbalized by the patient): Female Spiritual care concerns: No Meds Home Medications and Allergies Home Medications ?Medication ?Instructions ?Recorded ?Confirmed ?Type meclizine 25 mg tablet 25 mg PO BID PRN dizziness #60 tabs 01/30/25 02/08/25 Rx acetaminophen 325 mg tablet (Pain 325 mg PO ONCE PRN pain 02/04/25 02/08/25 History Reliever (acetaminophen)) Allergies Allergy/AdvReac Type Severity Reaction Status Date / Time No Known Allergies Allergy Unknown Verified 02/10/25 15:04 Exam Narrative: Patient has pain with any manipulation of her shoulder. She is weak in abduction external rotation. She has full painless neck motion. Neurologically she is intact. Eyes: General: appearance normal, both eyes and all related structures Neck: Neck: supple Resp: Effort & Inspection: normal respiratory effort Cardio: Rate: regular rate Rhythm: regular rhythm Radiology Reports: Comments: Magnetic Resonance Report Signed Patient: Roger Koehler MRI of the right shoulder Technique: Axial proton-density fat-sat images, coronal proton density fat-sat and T2 fat-sat images, and sagittal T1-weighted and T2 fat-sat images were acquired. Clinical History: Pain Findings: There is moderate to advanced AC joint degenerative change with subacromial spur and distal clavicular bony productive change. Coracoclavicular, coracoacromial, and coracohumeral ligament are intact. There is 0.8 x 0.9 cm full-thickness tear at the distal supraspinatus tendon insertion region. There is background moderate to severe supraspinatus tendinosis. Infraspinatus tendon is intact, without partial or full-thickness tear. Subscapularis tendon demonstrates mild tendinosis with possible partial thickness bursal surface tearing of the distal most fibers. Tendon of long head of the biceps is intact, with intra-articular tendinosis. Probable subtle superior labral tear without definite anterior or posterior extension. Inferior glenohumeral ligament is intact. No significant degenerative change of the glenohumeral joint seen. There is minimal effusion. There is fluid passing through the rotator cuff defect into the subacromial/subdeltoid bursa. No muscle atrophy or edema. Impression: 0.8 x 0.9 cm full-thickness tear at the distal supraspinatus tendon, with background moderate to severe supraspinatus tendinosis. Questionable partial thickness bursal surface tearing of the distal most fibers of the subscapularis tendon. Questionable superior labral tear without anterior or posterior extension. Moderate to advanced AC joint degenerative change. Reviewed, dictated and finalized at [facility]. Knee X-Ray 05/13/24 Knee MRI 06/13/24 Shoulder X-Ray 12/02/24 Shoulder MRI 11/18/24 Orthopedics Result Report 12/02/24 Assessment and Plan Assessment and plan (1) Tear of right supraspinatus tendon: Code(s): M75.101 - Unspecified rotator cuff tear or rupture of right shoulder, not specified as traumatic Status: Acute Assessment and Plan: Patient has rotator cuff tear right. She has failed conservative treatment like to consider surgical repair. She also has arthritis of the acromioclavicular joint with spurring and pain. I discussed treatment options with her in detail risks benefits, limitations and alternatives. She understands and agrees and would like to proceed. She is well aware the fact that she has a large tear and sometimes the tears or non repairable. Will proceed per her request. (2) Acromioclavicular arthrosis: Code(s): M19.019 - Primary osteoarthritis, unspecified shoulder Status: Acute
--- NOTE | 2025-02-17 14:28 | P.PNAN_ITS ---
Anes - Initial Pre Proc Eval Procedure: Operation Date: 02/18/25 08:00 Proposed Procedures p Right Shoulder Arthroscopy, Open Rotator Cuff Repair with Distal Clavicle Excision - Favian Yang MD Date/Time: 02/17/25 14:28 Surgeon: Favian Yang MD Pre Op Diagnosis: right rotator cuff tear, ac arthritis Patient Data Age: 49 Gender: F Height: 1.6 m Weight: 82 kg Allergies Allergy/AdvReac Type Severity Reaction Status Date / Time No Known Allergies Allergy Unknown Verified 02/18/25 07:08 Home Medications ?Medication ?Instructions ?Recorded ?Confirmed ?Type meclizine 25 mg tablet 25 mg PO BID PRN dizziness #60 tabs 01/30/25 02/17/25 Rx acetaminophen 325 mg tablet (Pain 325 mg PO ONCE PRN pain 02/04/25 02/17/25 History Reliever (acetaminophen)) Patient hx anesthesia problems: none Family hx anesthesia problems: none Results Review: All pre-operative results and documents have been reviewed as part of the pre- operative evaluation. [facility] Past Medical History Medical History Tear of right supraspinatus tendon Thickened endometrium Dental caries Anxiety and depression Surgical History Surgical History History of 2012,2016,2018 Family History Family History Father Cancer Mother Hypertension Social History Social History Smoking packs per day: 0.5 Smoking cigarettes per day: 10.0 Years smoked: 15 Smoking pack-years: 7.50 Smoking status: Current every day smoker Tobacco type: cigarettes Smoking end date: 09/03/05 Alcohol intake: current Alcohol use details: 1 per month Substance use: never Do You Feel Safe in your Home?: Yes Lack of Transportation: No Lack of Food: Never True Current Housing: I Have Housing Concerned About Future Housing: No Difficulty Paying Gas/Electric Bills: No Difficulty Paying for Meds: No Currently Unemployed: No Education: High School Diploma/GED Difficulty w/ Childcare or Family Care: No Living arrangements: with family Gender identity (if verbalized by the patient): Female Spiritual care concerns: No Anes - Eval Final PreProcedure Day of Procedure 02/17/25 14:28 Patient weight: obese Heart: regular rate and rhythm Lungs: clear to auscultation Airway: Mallampati scale class II and special considerations poor dentition Neurological: alert and oriented Last oral intake: >/= 8 hours ASA classification: II Emergent: no Anesthetic plan: proceed Anesthesia type and monitoring: general ETT and standard monitoring Results Review: All pre-operative results and documents have been reviewed as part of the pre- operative evaluation. Informed Consent: The patient's anesthetic plan and its attendant risks and benefits were discussed with the patient/family/POA. Questions were solicited and answers provided to the satisfaction of the patient/family/POA.
[2025-02-18] VITALS (11 sets, daily range): BP systolic 119–142; BP diastolic 65–91; PULSE 90–99; RESP 14–16; TEMP 36.8; O2SAT 94–100; BMI 32.3
[2025-02-18] MEDS: LACTATED RINGERS 1,000 ML 30 ML IV CONT ×2 (06:45→09:49)
[2025-02-18] MEDS: ACETAMINOPHEN 500 MG TABLET 1000 MG PO (06:50)
[2025-02-18] MEDS: KETOROLAC 15 MG/ML VIAL (*BKC) IV PUSH (06:50)
--- NOTE | 2025-02-18 06:54 | WPDHPUPDATE1 ---
History and Physical Update Update Date/Time: 02/18/25 06:54 History and Physical has been reviewed, including an updated exam of the patient. There are NO changes in the patient's condition. Risks, benefits, and alternatives have been discussed and questions answered. Patient agrees to proceed with procedure.
--- NOTE | 2025-02-18 07:10 | WPDANESPNB ---
Anes - Peripheral Nerve Block Date/Time: 02/18/25 07:10 I have discussed with the patient/family/POA the placement of a peripheral nerve block for post-operative pain management, including associated risks, benefits, complications, and side effects. Alternative methods of post-operative analgesia were detailed. Questions were solicited and answers provided to the satisfaction of the patient/family/POA. Time-Out: A pre-procedural Time-Out was completed immediately before starting the procedure and confirmed: Patient Identification, Site, Procedure, Patient Position and the Availability of Requisite Equipment. Clinical Indications: Acute post-operative pain management requested by the operative surgeon. Nerve Block Insertion Note Anes-nerve block: interscalene right Patient position: supine Skin prep: chlorhexidine Needle: 22 gauge, stimulating, insulated echogenic needle. Needle length: 50 mm Technique: ultrasound Injectate: bupivacaine 0.5% with epi 5 mcg/ml (20cc- no epi) Observations: tolerated well Complications: none Procedure start time:: 746 Procedure end time:: 750
[2025-02-18 07:19] LABS: BEDSIDEPREGUCG Negative (Negative)
[2025-02-18] MEDS: ceFAZolin 2 GM/D5W 50 ML 2 GM/50 ML BAG IVPB (07:58)
[2025-02-18] MEDS: LIDO 1%/EPINEPHRINE 1:100,000 50 ML VIAL 10 ML INFILTRATE (08:48)
[2025-02-18] MEDS: EPINEPHrine HCL INJ 1 MG/ML AMPUL IRRIGATION (08:49)
--- NOTE | 2025-02-18 09:28 | W.PM.PROC2 ---
Procedure Note - Detailed Date of Procedure 02/18/25 Pre-op Diagnosis Right rotator cuff tear Acromioclavicular Arthritis Post-op Diagnosis Same Procedure Performed Rotator cuff repair Distal clavicle excision Surgeon Favian Yang MD Anesthesia General Findings Pain and Tearing of the rotator Cuff Description of Procedure Patient brought to the operative room #8. A general anesthetic was administered. The patient was placed in the beach chair position with the RIGHT shoulder exposed.? After sterile prep and drape, standard posterior and lateral portals were used for arthroscopy. The joint itself looked reasonably good the biceps tendon was intact.? There was fraying and tearing of the rotator cuff area in the supraspinatus tear region. This was gently debrided.? The subacromial space had an intense bursa, this was debrided with a shaver and acromioplasty performed arthroscopically.? The subacromial space was quite tight initially. I then proceeded to open the shoulder. A longitudinal incision made from the AC joint distalward over the shoulder.? Dissection carried down to the fascia. The fascia overlying the acromioclavicular joint was split. The AC joint found and a distal clavicle excision performed removing 3 to 4 millimeters of bone.? The edges beveled.? The deltoid was then split from the tip of the acromion. The remainder of the bursa was debrided.? The rotator cuff was torn in the supraspinatus and subscapularis interval. The tear ended up being nearly quarter in size. This was debrided and repaired to bone using #2 Ethibond suture.? At this point the deltoid was repaired to itself,the acromion and the trapezius with #2 Ethibond. The skin was closed with 2-0 Vicryl and 3-0 Prolene.? Sterile dressing was applied. The patient tolerated the procedure well and left the operating room satisfactory condition. Estimated Blood Loss 50 Drains No Packing No Pathology None sent Complications No immediate complications Condition Stable Disposition PACU [facility] Billing Surgery - Charge Forward: Surgery Billing ([id number] RTC Repair [id number] DCE)
[2025-02-18] MEDS: fentaNYL CITRATE INJ (*CRX) 100 MCG/2 ML VIAL 25 MCG IV PUSH (10:04)
[2025-02-18] MEDS: oxyCODONE HCL (*CRX) 5 MG TAB IR PO (11:55)
== END 2025-02-18 12:11 | disposition home or self-care (01) ==
PROVIDERS: PCP Family Medicine; Visit Provider Orthopaedic Surgery
PROC: (CPT 29805; principal; 2025-02-18 08:00)
DX: M75.101 Unspecified rotator cuff tear or rupture of right shoulder, not specified as traumatic (principal); M19.011 Primary osteoarthritis, right shoulder; G89.18 Other acute postprocedural pain; F41.8 Other specified anxiety disorders; F17.210 Nicotine dependence, cigarettes, uncomplicated; Z98.890 Other specified postprocedural states; Z80.9 Family history of malignant neoplasm, unspecified
CPT/HCPCS: 64415; 23412; 23120; A4565; A9270; J0171; J0690; J1100; J1171; J1885; J2003; J2004; J2250; J2371; J2405; J2704; J3010; J7120

== ENCOUNTER 2025-03-04 01:01 | Day surgery (SDC) | payer OTHER, SELFPAY ==
--- NOTE | 2025-03-02 10:07 | PC.NURSE ---
Report to the Outpatient Waiting Room, entrance under the green pavilion located off [facility], at time _0930_ on date _[id number]_. Planned Procedure Time: _1130_.? Time changes happen often and if your time is changed the preop area will call you the afternoon before. - You and your visitor will be asked to self-screen and do not enter if you have any COVID symptoms. Please call surgeon if you need to reschedule. - A mask is optional within the hospital at this time. Patients may have clear liquids (water, carbonated beverages, clear teas, apple juice) until 3 hours prior to surgery with a maximum of 20 ounces. - No food from midnight until time of surgery and no smoking, or chewing tobacco (or any form of nicotine). No chewing gum, candy or mints. Take only the following medications with a SIP of water on the morning of surgery: __Acetaminophen if needed. DO NOT STOP ANY OF YOUR OTHER PRESCRIPTION MEDICATIONS PRIOR TO SURGERY EXCEPT THE FOLLOWING Hold all vitamins and supplements for 3 days per anesthesiologist. Medications to discontinue per physician Date to take last dose Please no make-up, nail armenian, hairspray, perfume, deodorant, or body powder the day of surgery.? No jewelry (including any body piercings) or valuables the day of surgery, leave them at home.? Please take a shower or bath the night before, or the morning of, surgery with an antibacterial soap.? Wear comfortable, loose fitting clothing.? - Jewelry must be removed prior to entering the operating room.? Rings and piercings that are not removed may be cut off. - The hospital will not accept responsibility for valuables.? - Please leave all valuables, including medications, at home the day of surgery. If you are going home after surgery, a licensed newspaper delivery driver must drive you home.? - NO public transportation without another adult if you receive anesthesia. - We recommend that an adult stay with you for 24 hours following discharge. - We also recommend that you do not drive, make important decision, drink alcoholic beverages, or take any drugs that were not prescribed by your health care provider for at least 24 hours after your discharge time. Follow any additional instructions given to you from your surgeon. Telephone instructions given to __Roger___and asked if any additional questions and then verbalized understanding. Patient advised to call surgeon office or pre surgery nurse liaison [phone] if any additional questions.
[2025-03-02 10:12] VITALS: BMI 32.3
--- OUTSIDE RECORDS SUMMARY | 2025-03-04 01:04 | XMS_ITS | Clinical Summary ---
Author Organization [facility] Address [facility] [place] [address] Care Team Providers Care Adding Machine Servicer Name Role Phone Venkatesh Parks Primary Care Provider [phone] Allergies No known active allergies Medications naproxen (NAPROSYN) 500 MG tablet Take 1 tablet (500 mg total) by mouth 2 (two) times daily with meals. 12 tablet 11/27/2024 Active HYDROcodone-acet aminophen (NORCO) 5-325 MG tabletIndication s:Acute Pain < 7 Day Supply Take 1 tablet by mouth every 6 (six) hours as needed for Pain. Indications : Acute Pain < 7 Day Supply 15 tablet 11/27/2024 Active Encounters Date Type Department Care Team Description 12/15/2024 11:42 AM CDT - 12/15/2024 2:14 PM CDT Emergency [facility] [address] [place] [address] [place] [address] Adan Moy DO Dizziness Discharge Disposition: Home or Self Care (Routine Discharge) 12/15/2024 Travel from Last 3 Months Social History Tobacco Use Types Packs/Day Years Used Date Smoking Tobacco: Never Assessed Comments Unknown Sex and Gender Information Value Date Recorded Sex Assigned at Female 11/27/2024 4:08 PM CDT 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 Gender Identity Not on file Sexual Orientation Not on file Last Filed Vital Signs Vital Sign Reading Time Taken Comments Blood Pressure 126/85 12/15/2024 2:00 PM CDT Pulse 109 12/15/2024 2:00 PM CDT Temperature 36.4 C (97.6 F) 12/15/2024 11:51 AM CDT Respiratory Rate 16 12/15/2024 2:00 PM CDT Oxygen Saturation 95% 12/15/2024 1:30 PM CDT Inhaled Oxygen Concentration - - Weight 84.1 kg (185 lb 6.5 oz) 12/15/2024 11:51 AM CDT Height 160 cm (5' 3) 12/15/2024 11:51 AM CDT Body Mass Index 32.84 12/15/2024 11:51 AM CDT Plan of Treatment Health Maintenance Due Date [...] Every 5 Years 2006 Cervical Cancer Screening with HPV 2006 Mammogram Screening 2016 COVID-19 Vaccine (2 - 2023-2 5 season) 2024 01/29/2021 Meningococcal B Vaccine Aged Out No l onger eligible based on patient's age to complete this topic Meningococcal Vaccine Aged Out No ivory ewelina eligible based on patient's age to complete this topic Pneumococcal Vaccine: Pediat rics (0 to 5 Years) and At-Risk Patients (6 to 49 Years) Aged Out No longer eligi ble based on patient's age to complete this topic RSV Immunizations Under 20 Months Aged Out No longer eligible based on patient's age to complete this topic Procedures Procedure Name Priority Date/Time Associated Diagnosis Comments CT HEAD WO CON STAT 12/15/2024 12:33 PM CDT TROPONIN, QUANT STAT 12/15/2024 11:57 AM CDT COMPREHENSIVE METABOLIC PANEL STAT 12/15/2024 11:57 AM CDT CBC W/DIFF AUTOMATED STAT 12/15/2024 11:57 AM CDT ECG 12-LEAD Routine 12/15/2024 11:49 AM CDT from Last 3 Months Results * CT HEAD WO CON (12/15/2024 12:33 PM CDT) Anatomical Region Laterality Modality Head Computed Tomogra phy 12/15/2024 12:4 7 PM CDT Impressions 12/15/2024 12:47 PM CDT IMPRESSION: No acute findings Ordered By: ADAN MOY Interpreted By: Aureliano Vazquez MD, 12/15/2024 12:47 PM Narrative 12/15/2024 12:47 PM CDT [address] [place] [address] CT HEAD WITHOUT CONTRAST Exam date: 12/15/2024 12:47 PM Clinical history: Dizziness Technique: 3 mm collimated axial images of the head were obtained without contrast. A dose lowering technique was used for this procedure, which may include, but is not limited to, dose reduction technique, automated exposure control, the use of iterative reconstruction, and ALARA (As Low As Reasonably Achievable) / Image Gently techniques. Comparison: reviewed without prior studies available for comparison. FINDINGS: Images of the head demonstrate no evidence of acute or chronic intracranial hemorrhage. No masses or mass effects are seen. The ventricles and sulci are symmetric. There is no evidence of midline shift. There is normal garcia-white differentiation throughout. No extra-axial fluid collections are evident. Bone windows reveal the paranasal sinuses and mastoid air cells to appear clear. There is no evidence of fracture. Procedure Note Aureliano Vazquez MD - 12/15/[address] [place] [address] CT HEAD WITHOUT CONTRAST Exam date: 12/15/2024 12:47 PM Clinical history: Dizziness Technique: 3 mm collimated axial images of the head were obtained withoutcontrast. A dose lowering technique was used for this procedure, which mayinclude, but is not limited to, dose reduction technique, automatedexposure control, the use of iterative reconstruction, and ALARA (As LowAs Reasonably Achievable) / Image Gently techniques. Comparison: reviewed without prior studies available for comparison. FINDINGS: Images of the head demonstrate no evidence of acute or chronicintracranial hemorrhage. No masses or mass effects are seen. Theventricles and sulci are symmetric. There is no evidence of midline shift.There is normal garcia-white differentiation throughout. No extra-axialfluid collections are evident. Bone windows reveal the paranasal sinuses and mastoid air cells to appearclear. There is no evidence of fracture. IMPRESSION: No acute findings Ordered By: ADAN MOY Interpreted By: Aureliano Vazquez MD, 12/15/2024 12:47 PM Adan Moy DO CT Final Result * (ABNORMAL) COMPREHENSIVE METABOLIC PANEL (12/15/2024 11:57 AM CDT) GLUCOSE 96 70 - 99 MG/DL 12/15/2024 12:36 PM CDT [facility] BUN 15 7 - 18 MG/DL 12/15/2024 12:36 PM CDT [facility] CREATININE S/P/B 0.55 0.50 - 1.20 MG/DL 12/15/2024 12:36 PM CDT [facility] SODIUM S/P/B 144 136 - 145 MMOL/L 12/15/2024 12:36 PM CDT [facility] POTASSIUM S/P/B 4.1 3.5 - 5.1 MMOL/L 12/15/2024 12:36 PM CDT [facility] CHLORIDE S/P/B 106 100 - 108 MMOL/L 12/15/2024 12:36 PM CDT [facility] CO2 29.9 21.0 - 32.0 MMOL/L 12/15/2024 12:36 PM CDT [facility] CALCIUM S/P/B 9.1 8.5 - 10.1 MG/DL 12/15/2024 12:36 PM CDT [facility] BILIRUBIN TOTAL S/P/B 0.3 0.2 - 1.2 MG/DL 12/15/2024 12:36 PM T [facility] Comment: THIS ASSAY IS NOT RECOMMENDED FOR PATIENTS UNDERGOING TREATMENT WITH ELTROMBOPAG DUE TO THE POTENTIAL FOR FALSELY ELEVATED RESULTS. TOTAL PROTEIN S/P/B 6.7 6.4 - 8.2 G/DL 12/15/2024 12:36 PM CDT [facility] ALBUMIN S/P/B 3.2(L) 3.4 - 5.0 G/DL 12/15/2024 12:36 PM CDT [facility] AST 12(L) 15 - 37 U/L 12/15/2024 12:36 PM CDT [facility] ALT 18 14 - 55 U/L 12/15/2024 12:36 PM T [facility] ALKALINE PHOSPHATASE S/P/B 69 50 - 136 U/L 12/15/2024 12:36 PM CDT [facility] ANION GAP 8.1 5.0 - 15.0 MMOL/L 12/15/2024 12:36 PM CDT [facility] BUN CREATININE RATIO 27.3(H) 6 - 26 12/15/2024 12:36 PM T [facility] A/G RATIO 0.9(L) 1.0 - 2.5 RATIO 12/15/2024 12:36 PM T [facility] GFR ESTIMATE >90 >90 ML/MIN/1.7 3 M2 12/15/2024 12:36 PM T [facility] Comment: NOTE: eGFR is not calculated for patients <18 years of age. This is an estimated GFR calculation using the new CKD EPI creatinine equation without race and so does not require a correction factor for race. This estimated GFR should not be used for calculating drug doses. 12/15/2024 11:5 7 AM CDT Adan M Moy DO LABORATORY Final Result [address] [place] [address], [place] * (ABNORMAL) CBC W/DIFF AUTOMATED (12/15/2024 11:57 AM CDT) WBC 15.84(H) 4.50 - 11.00 x10'3/uL 12/15/2024 12:16 PM CDT [facility] RBC 4.15 4.00 - 5.20 x10'6/uL 12/15/2024 12:16 PM CDT [facility] HGB 9.1(L) 12.0 - 16.0 G/DL 12/15/2024 12:16 PM CDT [facility] HCT 29.9(L) 38.0 - 48.0 % 12/15/2024 12:16 PM CDT [facility] MCV 72.0(L) 80.0 - 100.0 FL 12/15/2024 12:16 PM CDT [facility] MCH 21.9(L) 26.0 - 34.0 PG 12/15/2024 12:16 PM CDT [facility] MCHC 30.4(L) 31.0 - 37.0 G/DL 12/15/2024 12:16 PM CDT [facility] RDW 16.9(H) 11.6 - 14.8 % 12/15/2024 12:16 PM CDT [facility] PLT 309 130 - 400 x10'3/uL 12/15/2024 12:16 PM CDT [facility] MPV 9.8 7.0 - 12.0 FL 12/15/2024 12:16 PM CDT [facility] CBC COMMENT AUTOMATED RBC MORPHOLOGY AND PLATELET EVALUATION NORMAL 12/15/2024 12:16 PM CDT [facility] NEUTROPHILS % 87.1(H) 40.0 - 74.0 % 12/15/2024 12:16 PM CDT [facility] LYMPHOCYTES % 7.2(L) 14.0 - 46.0 % 12/15/2024 12:16 PM CDT [facility] MONOCYTES % 3.9(L) 4.0 - 13.0 % 12/15/2024 12:16 PM CDT [facility] EOSINOPHILS 0.8 0.0 - 7.0 % 12/15/2024 12:16 PM CDT [facility] BASOPHILS 0.4 0.0 - 3.0 % 12/15/2024 12:16 PM CDT [facility] IMMATURE GRANS % 0.6(H) 0.0 - 0.43 % 12/15/2024 12:16 PM CDT [facility] NRBC % 0.0 % 12/15/2024 12:16 PM CDT [facility] ABS. NEUTROPHILS TOTAL 13.79(H) 1.69 - 7.81 x10'3/uL 12/15/2024 12:16 PM CDT [facility] ABS. LYMPHOCYTES 1.14 0.21 - 5.42 x10'3/uL 12/15/2024 12:16 PM CDT [facility] ABS. MONOCYTES 0.61 0.04 - 1.37 x10'3/uL 12/15/2024 12:16 PM CDT [facility] ABS. EOSINOPHILS 0.13 0.00 - 0.68 x10'3/uL 12/15/2024 12:16 PM CDT [facility] ABS. BASOPHILS 0.07 0.00 - 0.08 x10'3/uL 12/15/2024 12:16 PM CDT [facility] ABS. IMMATURE GRANULOCYTES 0.10(H) 0.00 - 0.06 x10'3/uL 12/15/2024 12:16 PM CDT [facility] ABS. NUCLEATED RBC'S 0.00 0.00 - 0.01 x10'3/uL 12/15/2024 12:16 PM CDT [facility] 12/15/2024 11:5 7 AM CDT Adan Moy DO LABORATORY Final Result Performing Organization Address [facility] Co de Phone Number [facility] [address] [facility] [address], [place] * TROPONIN, QUANT (12/15/2024 11:57 AM CDT) TROPONIN I HIGH SENSITIVITY 7 0 - 54 ng/L 12/15/2024 12:36 PM CDT [facility] Comment: HIGH DOSES OF BIOTIN, TROPONIN-SPECIFIC AUTOANTIBODIES, AND ANTIBODY THERAPY CONTAINING HAMA MAY INTERFERE WITH THIS TEST RESULT. CORRELATION TO CLINICAL HISTORY AND PRESENTATION RECOMMENDED. 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1975 Requested By: ADAN MOY Order Number: [id number] Reading MD: Dominic Garcia Measurements Intervals [place] Rate: 101 P: 61 ID: [id number] QRS: 64 QRSD: 78 T: 59 QT: 338 QTc: 439 Interpretive Statements SINUS TACHYCARDIA POSSIBLE LEFT ATRIAL ENLARGEMENT [-0.1mV P WAVE IN V1/V2] ABNORMAL RHYTHM ECG WARNING: DATA QUALITY MAY AFFECT INTERPRETATION Procedure Note Dominic Garcia MD - 12/16/2024 [facility] Test Date: 2024-12-15 Pat Name: SUSY CHAMPION Department: 100 Room: 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: Female 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1975 Requested By: ADAN MOY Order Number: [id number] Reading MD: Dominic Garcia Measurements Intervals [place] Rate: 101 P: 61 ID: [id number] QRS: 64 QRSD: 78 T: 59 QT: 338 QTc: 439 Interpretive Statements SINUS TACHYCARDIA POSSIBLE LEFT ATRIAL ENLARGEMENT [-0.1mV P WAVE IN V1/V2] ABNORMAL RHYTHM ECG WARNING: DATA QUALITY MAY AFFECT INTERPRETATION us Adan Moy DO ECG ORDERABLES Final Result [facility] [address] [place] [address] from Last 3 Months Insurance [place] [employer] Care Teams Adding Machine Servicer Relationship Specialty Start Date End Date Venkatesh Parks DO [address] [place] [address] PCP - General FAMILY PRACTICE 11/27/24
[2025-03-04 09:33] VITALS: BP 132/72; PULSE 75; RESP 18; TEMP 36.6; O2SAT 100
[2025-03-04] MEDS: ACETAMINOPHEN 500 MG TABLET 1000 MG PO (09:55)
--- NOTE | 2025-03-04 09:59 | WPDHPUPDATE1 ---
History and Physical Update Update Date/Time: 03/04/25 09:59 History and Physical has been reviewed, including an updated exam of the patient. There are NO changes in the patient's condition. Risks, benefits, and alternatives have been discussed and questions answered. Patient agrees to proceed with procedure.
[2025-03-04] MEDS: LACTATED RINGERS 1,000 ML 30 ML IV CONT (10:00)
--- NOTE | 2025-03-04 10:03 | WPDHPUPDATE1 ---
History and Physical Update Update Date/Time: 03/04/25 10:03 History and Physical has been reviewed, including an updated exam of the patient. There are NO changes in the patient's condition. Risks, benefits, and alternatives have been discussed and questions answered. Patient agrees to proceed with procedure.
[2025-03-04 10:21] LABS: BEDSIDEPREGUCG Negative (Negative)
--- NOTE | 2025-03-04 11:35 | WPDANESEPPF ---
Anes - Initial Pre Proc Eval Procedure: Operation Date: 03/04/25 11:30 Proposed Procedures p Hysteroscopy with Endometrial Ablation - Chepe Nunez MD Date/Time: 03/04/25 11:35 Surgeon: Chepe Nunez MD Pre Op Diagnosis: menorrhagia, endometrial polyp Patient Data Age: 49 Gender: F Height: 1.6 m Weight: 82.55 kg Last Vital Signs Temp 36.6 C 03/04/25 09:33 Pulse 75 03/04/25 09:33 Resp 18 03/04/25 09:33 BP 132/72 03/04/25 09:33 Pulse Ox 100 03/04/25 09:33 O2 Del Method Room Air 03/04/25 09:33 Allergies Allergy/AdvReac Type Severity Reaction Status Date / Time No Known Allergies Allergy Unknown Verified 03/04/25 10:18 Home Medications ?Medication ?Instructions ?Recorded ?Confirmed ?Type meclizine 25 mg tablet 25 mg PO BID PRN dizziness #60 tabs 01/30/25 03/03/25 Rx acetaminophen 325 mg tablet (Pain 325 mg PO ONCE PRN pain 02/04/25 03/03/25 History Reliever (acetaminophen)) Laboratory Tests 03/04/25 09:40 POC Urine HCG, Qual Negative (Negative) Patient hx anesthesia problems: none Family hx anesthesia problems: none Results Review: All pre-operative results and documents have been reviewed as part of the pre-operative evaluation. [facility] Past Medical History Medical History Tear of right supraspinatus tendon Thickened endometrium Dental caries Anxiety and depression Surgical History Surgical History (Updated 03/04/25 @ 11:35 by Nick Siu MD) History of shoulder surgery History of 2012,2016,2018 Family History Family History Father Cancer Mother Hypertension Social History Social History (Updated 03/04/25 @ 11:35 by Nick Siu MD) Smoking packs per day: 0.5 Smoking cigarettes per day: 10.0 Years smoked: 15 Smoking pack-years: 7.50 Smoking status: Former smoker Tobacco type: cigarettes Smoking end date: 09/03/05 Alcohol intake: current Alcohol use details: 1 per month Substance use: never Do You Feel Safe in your Home?: Yes Lack of Transportation: No Lack of Food: Never True Current Housing: I Have Housing Concerned About Future Housing: No Difficulty Paying Gas/Electric Bills: No Difficulty Paying for Meds: No Currently Unemployed: No Education: High School Diploma/GED Difficulty w/ Childcare or Family Care: No Living arrangements: with family Gender identity (if verbalized by the patient): Female Spiritual care concerns: No Anes - Eval Final PreProcedure Day of Procedure 03/04/25 11:35 Patient weight: obese Heart: regular rate and rhythm Lungs: clear to auscultation Airway: Mallampati scale class II and special considerations poor dentition Neurological: alert and oriented Last oral intake: >/= 8 hours ASA classification: II Emergent: no Anesthetic plan: proceed Anesthesia type and monitoring: general GIVS and standard monitoring Results Review: All pre-operative results and documents have been reviewed as part of the pre-operative evaluation. Informed Consent: The patient's anesthetic plan and its attendant risks and benefits were discussed with the patient/family/POA. Questions were solicited and answers provided to the satisfaction of the patient/family/POA.
[2025-03-04] MEDS: ceFAZolin 2 GM/D5W 50 ML 2 GM/50 ML BAG IVPB (11:49)
[2025-03-04] MEDS: LIDOCAINE 1% LOCAL INJ 10 ML VIAL INFILTRATE (12:05)
--- NOTE | 2025-03-04 12:22 | S_PTH ---
PATIENT: Roger Koehler LOC: [facility]#:[id number] AGE/SX: 49/F ROOM: RE03/04/[address]: Chepe Nunez MD : 1975 BED: DIS: 03/04/2025 SPEC #: [id number] RECD: 03/04/25 13:20 STATUS: TREY REQ #: [id number] TRAVON: 03/04/25 12:[address]: Chepe Nunez DEPT: [facility] Surgical RECD BY: Nahid Ramos ENTERED: 03/04/25 13:20 SP TYPE: Surgical OTHR DR: Venkatesh Parks, DO Tissues: A - Endometrial Curettings Procedures: Hematoxylin and Eosin Stain Gross and Microscopic Level 4
[2025-03-04 12:29] VITALS: BP 137/81; PULSE 64; RESP 16; O2SAT 100
--- NOTE | 2025-03-04 12:29 | W.PM.PROC2 ---
Procedure Note - Detailed Date of Procedure 03/04/25 Pre-op Diagnosis menorrhagia, endometrial polyp Post-op Diagnosis Same Procedure Performed Hysteroscopy and dilation and curettage and removal of endometrial lesion Marivel endometrial ablation Surgeon Chepe Nunez MD Anesthesia MAC and Local Indications Heavy periods, endometrial polyp Findings Uterus sound to 9.5cm, approximately 2cm endometrial lesion consistent with polyp at lower posterior cavity, cervical length 5cm. Uterine cavity length 4.5cm. Description of Procedure After informed consent was obtained patient was taken to the operating room and adequate IV sedation was administered. Attention was turned to the vagina. Speculum was inserted. Single-tooth tenaculum placed on the anterior lip of the cervix. 10 cc of 1% lidocaine was injected at cervicovaginal interface at 2,5,8, 10 position. The uterus was sounded to 9.5 cm. The cervix was dilated to an 8 Long dilator. The cervical length was 5 . The hysteroscope was inserted into the cavity. Endometrial lesion seen. Removed completely with Aveta instrument. The hysteroscope was removed. Curettage performed. The Marivel ablation instrument was inserted into the cavity. Cavity assessment was performed and confirmed intact. The ablation was enabled and then stopped after approximately 9 secs, with code 002. The instrument was replaced per error code instruction. Another device inserted and cavity assessment intact and the ablation was enable. After 120 seconds the Marivel stopped. The ablation instrument was removed. The hysteroscope was inserted and there was noted to be good eschar with the cavity. The hysteroscope was removed the single-tooth tenaculum was removed hemostasis was noted at the tenaculum site. Sponge count correct. The patient taken to recovery in stable condition. Estimated Blood Loss 5 Drains No Packing No Pathology Yes (endometrial lesion shavings and curettage) Complications No immediate complications Condition Stable Disposition Same day [facility] Billing Surgery - Charge Forward: Surgery Billing
[2025-03-04 12:55] VITALS: BP 131/84; PULSE 70; RESP 18; O2SAT 99
[2025-03-04] MEDS: oxyCODONE HCL (*CRX) 5 MG TAB IR PO (13:07)
[2025-03-04] MEDS: KETOROLAC 30 MG/ML VIAL (*BKC) IV PUSH (13:17)
[2025-03-04 13:25] VITALS: BP 146/70; PULSE 69; RESP 16
[2025-03-04 13:55] VITALS: BP 129/78; PULSE 68; RESP 18
== END 2025-03-04 14:16 | disposition home or self-care (01) ==
PROVIDERS: Anesthesiology; PCP Family Medicine; Visit Provider Obstetrics & Gynecology
PROC: 0U5B8ZZ Destruction of Endometrium, Via Natural or Artificial Opening Endoscopic (ICD-10-PCS; CPT 58563; principal; 2025-03-04 11:30)
DX: N92.0 Excessive and frequent menstruation with regular cycle (principal); N84.0 Polyp of corpus uteri; Z87.891 Personal history of nicotine dependence; E66.9 Obesity, unspecified; Z68.32 Body mass index [BMI] 32.0-32.9, adult
CPT/HCPCS: 58563; 88305; A9270; J0690; J1885; J2003; J2250; J2704; J3010; J7120